=== PATIENT | female | born 1965 | race African-American/Black ===

== ENCOUNTER 2021-04-26 11:37 | Emergency (ER) | payer OTHER ==
[2021-04-26 11:50] VITALS: BP 123/77; PULSE 75; TEMP 98.6; BMI 24.2
== END 2021-04-26 13:30 | disposition home or self-care (01) ==
LOC: JER 11:37
DX: N95.0 Postmenopausal bleeding (principal); H60.91 Unspecified otitis externa, right ear
CPT/HCPCS: 99283-25